=== PATIENT | female | born 1935 | race Caucasian/White ===

== ENCOUNTER 2018-09-25 10:43 | Emergency (ER) | payer MEDICARE, MEDICAID ==
[~2018-09-25] VITALS: Wt 72.0 kg
[2018-09-25] MEDS ORDERED: LORAZEPAM 1 MG TAB PO ONE (12:00)
[2018-09-25] MEDS ORDERED: LEVO125T7 ORAL (12:55)
[2018-09-25] MEDS ORDERED: ASPI-817 ORAL (12:55)
[2018-09-25] MEDS ORDERED: CALC1TAB93 ORAL (12:55)
[2018-09-25] MEDS ORDERED: CLOP75TA28 ORAL (12:55)
[2018-09-25] MEDS ORDERED: LORA1TAB ORAL (12:55)
[2018-09-25] MEDS ORDERED: DOCU-159 PO (12:55)
[2018-09-25] MEDS ORDERED: ACET325T45 ORAL (12:55)
[2018-09-25] MEDS ORDERED: CHOL100062 PO (12:55)
[2018-09-25] MEDS ORDERED: ATOR-2 ORAL (12:55)
[2018-09-25] MEDS ORDERED: NIFE60TA36 ORAL (12:55)
[2018-09-25] MEDS ORDERED: SENN-120 PO (12:55)
--- NOTE | 2018-09-25 13:37 | ERD ---
ER Documentation Chief Complaint Chief Complaint NON TRAUMATIC GEN BODY PAIN NON SPECIFIC. ALSO NEEDS SOCIAL SERVICE/ CONSUL HPI 83-year-old female presents the emergency department requesting a new place to stay. Patient states that she has a number of chronic nonspecific body pains including back pain and myalgias. Patient apparently lives at a boarding care facility and she states that she is not able to live there as she is unable to care for herself at that facility at this current time. She indicates no acute trauma, no acute fever or other acute complaints. ROS All systems reviewed and are negative except as per history of present illness. Medications Home Meds Reported Medications Docusate Sodium* (Docusate Sodium*) 100 Mg Capsule, 100 MG PO DAILY, #30 CAP 09/25/18 Sennosides* (Senna Lax*) 8.6 Mg Tablet, 1 TAB PO DAILY PRN for CONSTIPATION, TAB 09/25/18 Cholecalciferol* (Vitamin D3*) 1,000 Unit Tablet, 2000 UNIT PO DAILY, TAB 09/25/18 Calcium Carbonate/Vitamin D3 (OYSTER SHELL 500 MG + VIT D TB) 1 Each Tablet, 1 TAB ORAL DAILY 09/25/18 Aspirin* (Aspirin* EC) 81 Mg Tablet.dr, 1 TAB ORAL DAILY 09/25/18 Acetaminophen* (Acetaminophen*) 325 Mg Tablet, 1 TAB ORAL Q4H WHILE AWAKE PRN for PAIN LEVEL 1-3 09/25/18 Lorazepam* (Lorazepam*) 1 Mg Tablet, 1 TAB ORAL QHS PRN for ANXIETY 09/25/18 Nifedipine* (Adalat CC*) 60 Mg Tablet.sa, 1 TAB ORAL DAILY 09/25/18 Atorvastatin* (Atorvastatin*) 80 Mg Tablet, 1 TAB ORAL QHS 09/25/18 Clopidogrel Bisulfate (Clopidogrel) 75 Mg Tablet, 1 TAB ORAL DAILY 09/25/18 Levothyroxine Sodium* (Levothyroxine Sodium*) 125 Mcg Tablet, 1 TAB ORAL DAILY 09/25/18 Allergies Allergies: Coded Allergies: codeine (Verified Allergy, Unknown, 09/25/18) PMhx/Soc History of Surgery: No Anesthesia Reaction: No Hx Neurological Disorder: No Hx Respiratory Disorders: No Hx Cardiac Disorders: Yes (HTN, HDL) Hx Psychiatric Problems: Yes (ANXIETY) Hx Miscellaneous Medical Probl: Yes (OSTEOARTHRITIS, HYPOTHYROIDISM) Hx Alcohol Use: No Hx Substance Use: No Hx Tobacco Use: No Smoking Status: Never smoker FmHx Unknown at this time Physical Exam Vitals Vital Signs Date Temp Pulse Resp B/P (MAP) Pulse Ox O2 O2 Flow FiO2 Time Delivery Rate 09/25/18 98.2 90 18 146/68 99 10:48 (94) Physical Exam Const: No acute distress Head: Atraumatic Eyes: Normal Conjunctiva ENT: Normal External Ears, Nose and Mouth. Neck: Full range of motion. No meningismus. Resp: Clear to auscultation bilaterally Cardio: Regular rate and rhythm, no murmurs Abd: Soft, non tender, non distended. Normal bowel sounds Skin: No petechiae or rashes Back: No midline or flank tenderness Ext: No cyanosis, or edema Neur: Awake and alert Psych: Normal Mood and Affect Result Diagram: 09/25/18 1213 09/25/18 1213 Results 24 hrs Laboratory Tests Test 09/25/18 12:13 White Blood Count 6.1 10^3/ul Red Blood Count 3.94 10^6/ul Hemoglobin 11.2 g/dl Hematocrit 33.9 % Mean Corpuscular Volume 86.0 fl Mean Corpuscular Hemoglobin 28.4 pg Mean Corpuscular Hemoglobin Concent 33.0 g/dl Red Cell Distribution Width 14.3 % Platelet Count 273 10^3/UL Mean Platelet Volume 8.9 fl Immature Granulocytes % 0.300 % Neutrophils % 70.2 % Lymphocytes % 20.3 % Monocytes % 7.2 % Eosinophils % 1.8 % Basophils % 0.2 % Nucleated Red Blood Cells % 0.0 /100WBC Immature Granulocytes # 0.020 10^3/ul Neutrophils # 4.3 10^3/ul Lymphocytes # 1.2 10^3/ul Monocytes # 0.4 10^3/ul Eosinophils # 0.1 10^3/ul Basophils # 0.0 10^3/ul Nucleated Red Blood Cells # 0.0 10^3/ul Sodium Level 138 mmol/L Potassium Level 3.9 mmol/L Chloride Level 101 mmol/L Carbon Dioxide Level 25 mmol/L Anion Gap 12 Blood Urea Nitrogen 16 mg/dl Creatinine 0.73 mg/dl Est Glomerular Filtrat Rate mL/min mL/min Glucose Level 116 mg/dl Calcium Level 9.3 mg/dl Total Bilirubin 0.5 mg/dl Direct Bilirubin 0.00 mg/dl Indirect Bilirubin 0.5 mg/dl Aspartate Amino Transf (AST/SGOT) 22 IU/L Alanine Aminotransferase (ALT/SGPT) 18 IU/L Alkaline Phosphatase 132 IU/L Total Protein 7.6 g/dl Albumin 4.0 g/dl Globulin 3.60 g/dl Albumin/Globulin Ratio 1.11 Ethyl Alcohol Level < 10.0 mg/dl Current Medications Medications Dose Sig/Ryann Start Time Status Last (Trade) Ordered Route PRN Stop Time Admin Dose Reason Admin Lorazepam 1 mg ONCE ONCE 09/25/18 DC 09/25/18 (Ativan) PO 12:00 09/25/18 11:59 12:01 Procedures/MDM Patient was taken to a room, seen and evaluated. Comfort measures were initi ated. Diagnostic tests were ordered and reviewed. 3 LEAD RHYTHM STRIP: Normal sinus rhythm without ectopy CONSULTATION: services coordinator was notified for placement. They saw the patient will be able to place the patient from the emergency department. REEVALUATION: 1335: Diagnostic tests were appreciated and discussed with the patient. Arrangements were made for admission. MEDICAL DECISION MAKIN-year-old female presents the emergency department essentially for social circumstances. At this time, based on her initial diagnostic evaluation as well as lab tests, I see no indication of significant decompensated medical disease. She chronically uses a wheelchair. Patient has no indications of other significant comorbid conditions. Pending manager social work placement, she will maintain in observation in the emergency department. Departure Diagnosis: Primary Impression: Multiple complaints Condition: CHICHI Gallagher Sep 25, 2018 13:37
[2018-09-25] MEDS ORDERED: NITROFURANTOIN (SR) 100 MG CAP PO ONE (16:00)
[2018-09-25] MEDS ORDERED: NITR-58 PO (16:22)
[2018-09-25 17:02] VITALS: BP 136/74; PULSE 83; RESP 18
== END 2018-09-25 17:03 | disposition home or self-care (01) ==
LOC: E/R 10:43
DX: M54.9 Dorsalgia, unspecified (principal); I10 Essential (primary) hypertension; E03.9 Hypothyroidism, unspecified; Z79.01 Long term (current) use of anticoagulants; Z79.82 Long term (current) use of aspirin
CPT/HCPCS: 36415; 80053; 80307; 81001; 85025

== ENCOUNTER 2018-09-26 15:02 | Emergency (ER) | payer MEDICARE, MEDICAID ==
[~2018-09-26] VITALS: Ht 175.3 cm; Wt 72.0 kg
[~2018-09-26 15:02] MED LIST: ACET325T45 ORAL; ASPI-817 ORAL; ATOR-2 ORAL; CALC1TAB93 ORAL; CHOL100062 PO; CLOP75TA28 ORAL; DOCU-159 PO; LEVO125T7 ORAL; LORA1TAB ORAL; NIFE60TA36 ORAL; NITR-58 PO; SENN-120 PO
[2018-09-26 15:06] VITALS: Ht 175.3 cm; Wt 72.0 kg
--- NOTE | 2018-09-26 18:04 | ERD ---
ER Documentation Chief Complaint Chief Complaint PT TAES "I FEEL NERVOUS , I DON'T LIKE THE PLACE [facility] SENT ME " HPI This is an 83-year-old female that been seen and evaluated yesterday by her director social welfare. The patient had been sent to a boarding care facility. However the patient stated she did not feel comfortable there and she did not like the place and therefore she left. She stated the staff made her feel very nervous. Therefore the patient stated that she return to the emergency department today requesting another facility to live in. The patient is homeless. She denies any chest pain or pressure. She has no fevers or shaking or chills. She denies any frequency urgency or dysuria. She has no suicidal homicidal thoughts or ideations. She denies illicit drug use or alcohol use. ROS All systems reviewed and are negative except as per history of present illness. Medications Home Meds Active Scripts Nitrofurantoin Monohyd Macrocr* (Macrobid*) 100 Mg Capsr, 100 MG PO BID for 7 Days, CAP Prov:CATRACHO STOCK MD 09/25/18 Reported Medications Docusate Sodium* (Docusate Sodium*) 100 Mg Capsule, 100 MG PO DAILY, #30 CAP 09/25/18 Sennosides* (Senna Lax*) 8.6 Mg Tablet, 1 TAB PO DAILY PRN for CONSTIPATION, TAB 09/25/18 Cholecalciferol* (Vitamin D3*) 1,000 Unit Tablet, 2000 UNIT PO DAILY, TAB 09/25/18 Calcium Carbonate/Vitamin D3 (OYSTER SHELL 500 MG + VIT D TB) 1 Each Tablet, 1 TAB ORAL DAILY 09/25/18 Aspirin* (Aspirin* EC) 81 Mg Tablet.dr, 1 TAB ORAL DAILY 09/25/18 Acetaminophen* (Acetaminophen*) 325 Mg Tablet, 1 TAB ORAL Q4H WHILE AWAKE PRN for PAIN LEVEL 1-3 09/25/18 Lorazepam* (Lorazepam*) 1 Mg Tablet, 1 TAB ORAL QHS PRN for ANXIETY 09/25/18 Nifedipine* (Adalat CC*) 60 Mg Tablet.sa, 1 TAB ORAL DAILY 09/25/18 Atorvastatin* (Atorvastatin*) 80 Mg Tablet, 1 TAB ORAL QHS 09/25/18 Clopidogrel Bisulfate (Clopidogrel) 75 Mg Tablet, 1 TAB ORAL DAILY 09/25/18 Levothyroxine Sodium* (Levothyroxine Sodium*) 125 Mcg Tablet, 1 TAB ORAL DAILY 09/25/18 Allergies Allergies: Coded Allergies: codeine (Verified Allergy, Unknown, 09/25/18) PMhx/Soc History of Surgery: No Anesthesia Reaction: No Hx Neurological Disorder: No Hx Respiratory Disorders: No Hx Cardiac Disorders: Yes (HTN, HDL) Hx Psychiatric Problems: Yes (ANXIETY) Hx Miscellaneous Medical Probl: Yes (OSTEOARTHRITIS, HYPOTHYROIDISM) Hx Alcohol Use: No Hx Substance Use: No Hx Tobacco Use: No Smoking Status: Never smoker Physical Exam Vitals Vital Signs Date Temp Pulse Resp B/P (MAP) Pulse Ox O2 O2 Flow FiO2 Time Delivery Rate 09/26/18 98.3 80 16 146/74 99 Room Air 15:56 (98) 09/26/18 98.1 87 18 131/71 99 15:06 (91) Physical Exam Constitutional:Well-developed. Well-nourished. HEENT:Normocephalic. Atraumatic.Pupils were equal round reactive to light. Moist mucous membranes.No tonsillar exudates. Respiratory: Not using accessory muscles of respiration.Lungs were clear to auscultation bilaterally. No rhonchi. No rales. No wheezing. Cardiovascular: Regular rate regular rhythm.No murmurs. No rubs were appreciated.S1, S2 normal. Distal pulses are palpable 2+ bilaterally. GI: Abdomen was soft. Nontender. Non Distended. No pulsatile abdominal masses or bruits. No rebound. No guarding. Bowel sounds were present and normal. NEURO: Patient was alert, awake, orientated x3.No facial droop. Gait observed and normal with no ataxia.Speech had regular rate and rhythm. No focal neurological deficits. PSYCH: Patient denied any suicidal homicidal thoughts ideations. No auditory tactile visual hallucinations. Result Diagram: 09/26/18 1714 09/26/18 1714 Results 24 hrs Laboratory Tests Test 09/26/18 17:14 White Blood Count 5.1 10^3/ul Red Blood Count 3.80 10^6/ul Hemoglobin 11.1 g/dl Hematocrit 33.0 % Mean Corpuscular Volume 86.8 fl Mean Corpuscular Hemoglobin 29.2 pg Mean Corpuscular Hemoglobin Concent 33.6 g/dl Red Cell Distribution Width 14.1 % Platelet Count 239 10^3/UL Mean Platelet Volume 9.1 fl Immature Granulocytes % 0.200 % Neutrophils % 71.5 % Lymphocytes % 18.6 % Monocytes % 7.2 % Eosinophils % 2.3 % Basophils % 0.2 % Nucleated Red Blood Cells % 0.0 /100WBC Immature Granulocytes # 0.010 10^3/ul Neutrophils # 3.7 10^3/ul Lymphocytes # 1.0 10^3/ul Monocytes # 0.4 10^3/ul Eosinophils # 0.1 10^3/ul Basophils # 0.0 10^3/ul Nucleated Red Blood Cells # 0.0 10^3/ul Prothrombin Time 12.6 Sec Prothrombin Time Ratio 1.0 INR International Normalized Ratio 0.93 Activated Partial Thromboplast Time 25.9 Sec Sodium Level 137 mmol/L Potassium Level 3.6 mmol/L Chloride Level 103 mmol/L Carbon Dioxide Level 26 mmol/L Anion Gap 8 Blood Urea Nitrogen 17 mg/dl Creatinine 0.74 mg/dl Est Glomerular Filtrat Rate mL/min mL/min Glucose Level 107 mg/dl Calcium Level 9.1 mg/dl Total Bilirubin 0.5 mg/dl Direct Bilirubin 0.00 mg/dl Indirect Bilirubin 0.5 mg/dl Aspartate Amino Transf (AST/SGOT) 22 IU/L Alanine Aminotransferase (ALT/SGPT) 17 IU/L Alkaline Phosphatase 128 IU/L Total Protein 7.1 g/dl Albumin 3.7 g/dl Globulin 3.40 g/dl Albumin/Globulin Ratio 1.08 Salicylates Level < 1.0 mg/dl Acetaminophen Level < 10.0 ug/ml Ethyl Alcohol Level < 10.0 mg/dl Procedures/MDM This 83-year-old female presented to the emergency department with placement issues. The patient had no underlying medical condition that he felt required admission to the hospital. I repeated ancillary laboratory work and there is no severe electrolyte abnormalities. The patient had no evidence of sepsis. Therefore the patient will be seen by her director social welfare to arrange for safe placement for the patient given that she is homeless. Departure Diagnosis: Primary Impression: Homeless Condition: CATRACHO Cook MD Sep 26, 2018 18:04
[2018-09-27 02:00] VITALS: BP 112/56; PULSE 76; RESP 20
== END 2018-09-27 08:05 | disposition home or self-care (01) ==
LOC: E/R 15:02
DX: Z59.0 Homelessness (principal); I10 Essential (primary) hypertension; E03.9 Hypothyroidism, unspecified; R40.2142 Coma scale, eyes open, spontaneous, at arrival to emergency department; R40.2252 Coma scale, best verbal response, oriented, at arrival to emergency department; R40.2362 Coma scale, best motor response, obeys commands, at arrival to emergency department; Z79.82 Long term (current) use of aspirin
CPT/HCPCS: 80053; 80307; 81001; 85025; 85610; 85730; 99283